=== PATIENT | male | born 1985 | race Caucasian/White ===

== ENCOUNTER 2016-08-03 16:43 | Outpatient (CLI) | payer BC, OTHER | END 2016-08-03 16:44 | disposition home or self-care (01) | DX: M25.512 Pain in left shoulder (principal) ==

== ENCOUNTER 2017-01-11 10:40 | Outpatient (CLI) | payer OTHER | END 2017-01-11 10:41 | disposition home or self-care (01) | LOC: LAB.S 10:40 | PROVIDERS: ATTEND Urology | DX: C62.92 Malignant neoplasm of left testis, unspecified whether descended or undescended (principal) | CPT/HCPCS: 36415; 82105; 83615; 84702 ==

== ENCOUNTER 2020-01-17 13:39 | Outpatient (CLI) | payer SELFPAY | END 2020-01-17 13:40 | disposition home or self-care (01) | LOC: COV 13:39 | PROVIDERS: ATTEND Family Medicine | DX: Z20.828 Contact with and (suspected) exposure to other viral communicable diseases (principal) ==